=== PATIENT | female | born 1970 | race Caucasian/White ===

== ENCOUNTER 2017-07-04 13:45 | Emergency (ER) | payer MEDICAID ==
[2017-07-04] MEDS ORDERED: Bupivacaine 0.5% 30 ML SDV INFILT ONE (13:46)
[2017-07-04] MEDS ORDERED: Diphtheria,Pertussis(Acell),Tetanus Vaccine 0.5 ML SDV IM ONE (15:04)
[2017-07-04] MEDS ORDERED: cefTRIAXone 1,000 MG VIAL IM ONE (15:21)
--- NOTE | 2017-07-04 16:23 | EDM.PDOC ---
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 Pt noticed a LAC with bleed and pain with movement of her left ringfinger. She was not able to close her fist at her left hand because she was not able to bend her left ringfinger entirely. No active bleed, no other acute medical issues. 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: Pt did not take anything prior to coming into ER for pain Left 4-Ring finger Pain Score (Numeric/FACES): 8 - Related Data Allergies Allergy/AdvReac Type Severity Reaction Status Date / Time augmentin Allergy Hives Uncoded 07/04/17 14:21 bacterim Allergy Liver Uncoded 07/04/17 14:22 Problems bacterin Allergy Liver Uncoded 07/04/17 14:22 Problems Home Meds: Home Meds Cephalexin [Keflex] 500 mg PO Q6H #40 cap 07/04/17 [Rx] Furosemide [Lasix] 20 mg PO DAILY 07/04/17 [History] Sertraline [Zoloft] 100 mg PO DAILY 07/04/17 [History] Topiramate [Topamax] 50 mg PO DAILY 07/04/17 [History] tiZANidine HCl [Zanaflex] 6 mg PO DAILY 07/04/17 [History] ED ROS GENERAL - Review of Systems Review Of Systems: See Below Constitutional: Reports: No Symptoms HEENT: Reports: No Symptoms Respiratory: Reports: No Symptoms Cardiovascular: Reports: No Symptoms Endocrine: Reports: No Symptoms GI/Abdominal: Reports: No Symptoms : Reports: No Symptoms Musculoskeletal: Reports: No Symptoms Skin: Reports: Wound (left 4th finger) Neurological: Reports: No Symptoms Psychiatric: Reports: No Symptoms Hematologic/Lymphatic: Reports: No Symptoms Immunologic: Reports: No Symptoms ED EXAM, SKIN/RASH Exam: See Below Exam Limited By: No Limitations General Appearance: Alert, WD/WN, Mild Distress Eye Exam: Bilateral Eye: Normal Inspection Ears: Normal External Exam Nose: Normal Inspection, Normal Mucosa Throat/Mouth: Normal Inspection, Normal Lips Head: Atraumatic, Normocephalic Neck: Normal Inspection, Supple, Non-Tender, Full Range of Motion Respiratory/Chest: No Respiratory Distress, Lungs Clear, Normal Breath Sounds, No Accessory Muscle Use, Chest Non-Tender Cardiovascular: Normal Peripheral Pulses, Regular Rate, Rhythm, No Edema, No Gallop, No JVD, No Murmur, No Rub Peripheral Pulses: 1+: Radial (L) GI/Abdominal: Normal Bowel Sounds, Soft, Non-Tender, No Organomegaly, No Distention, No Abnormal Bruit (Female) Exam: Deferred Rectal (Female) Exam: Deferred Back Exam: Normal Inspection, Full Range of Motion Extremities: Limited Range of Motion (of left ringfinger due to pain) Neurological: Alert, Oriented, CN II-XII Intact, Normal Cognition, Normal Gait, No Motor/Sensory Deficits Psychiatric: Normal Affect, Normal Mood Skin: Wound/Incision (left ringfinger) Location, Skin: Upper Extremity, Left Lymphatic: No Adenopathy ED SKIN PROCEDURES - Laceration/Wound Repair Left Middle Anterior Finger Lac/Wound length In cm: 2 Appearance: Superficial, Stellate, Clean Distal NVT: Neuro & Vascular Intact, No Tendon Injury (possible) Anesthetic Type: Local Local Anesthesia - Bupivicaine (Marcaine): 0.5% Plain Local Anesthetic Volume: 3cc Skin Prep: Providone-Iodine (Betadine) Saline Irrigation (cc's): 4 Exploration/Debridement/Repair: Wound Explored, In a Bloodless Field, Explored to Base Closed with: Sutures Suture Size: 4-0 # of Sutures: 4 Suture Type: Other (ethilen) Tetanus Status Addressed: Other (07/04/2017) Complications: No Course - Vital Signs Text/Narrative:: 46 y.o.w.f came with her son to the ed after she cut herself by accident into 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 Pt noticed a LAC with bleed and pain with movement of her left ringfinger. She was not able to close her fist at her left hand because she was not able to bend her left ringfinger entirely. No active bleed, no other acute medical issues. BP 105/57 RR 18 Pulse ox 97% Temp 36.7 pulse 78 PE: WNWD W F in NAD with a left ring finger LAC. Procedure: Please see note above Impression: LAC left ring finger, repaired in the ed. Tx: Rocephine, TD Reexam: Improved Plan: D/C with instructions Last Recorded V/S: Last Vital Signs Temp 37.0 C 07/04/17 16:24 Pulse 68 07/04/17 16:24 Resp 16 07/04/17 16:24 BP 94/55 L 07/04/17 16:24 Pulse Ox 99 07/04/17 16:24 - Orders/Labs/Meds Orders: Active Orders 24 hr Category Date Time Status Vaccines to be Administered [RC] PER UNIT ROUTINE Care 07/04/17 15:05 Active Meds: Medications Discontinued Medications Generic Name Dose Route Start Last Admin Trade Name Kimberly PRN Reason Stop Dose Admin Ceftriaxone Sodium 1,000 mg 07/04/17 15:21 07/04/17 15:31 Rocephin IM 07/04/17 15:22 1,000 mg ONETIME ONE Administration Diphtheria/Tetanus/Acell Pertussis 0.5 ml 07/04/17 15:04 07/04/17 15:34 Adacel IM 07/04/17 15:05 0.5 ml .ONCE ONE Administration Departure - Departure Time of Disposition: 16:23 Disposition: Home, Self-Care 01 Condition: Good Clinical Impression: Finger laceration Qualifiers: Encounter type: initial encounter Finger: middle finger Damage to nail status: without damage Foreign body presence: without foreign body Laterality: left Qualified Code(s): S61.213A - Laceration without foreign body of left middle finger without damage to nail, initial encounter - Discharge Information Prescriptions: Cephalexin [Keflex] 500 mg PO Q6H #40 cap Instructions: Stitches, [place], or Adhesive Wound Closure, [id number] Referrals: PCP,None [Primary Care Provider] - Forms: ED Department Discharge, ED Return to Work/School Form Additional Instructions: Please apply Neosporine ointment twice daily for 5 days, Keflex as recommended. Wound check in 2 days, suture removal in 10 days. Please come back to the ed if your symptoms get worse acutely - My Orders Last 24 Hours: My Active Orders 07/04/17 15:05 Vaccines to be Administered [RC] PER UNIT ROUTINE - Assessment/Plan Last 24 Hours: My Active Orders 07/04/17 15:05 Vaccines to be Administered [RC] PER UNIT ROUTINE
== END 2017-07-04 16:40 | disposition home or self-care (01) ==
LOC: FB.ED 13:45
DX: S61.215A Laceration without foreign body of left ring finger without damage to nail, initial encounter (principal); Z23 Encounter for immunization; Z88.1 Allergy status to other antibiotic agents; Z79.899 Other long term (current) drug therapy; W26.8XXA Contact with other sharp object(s), not elsewhere classified, initial encounter
CPT/HCPCS: 12001; 90471; 90715; 96372; 99282; J0696

== ENCOUNTER 2022-04-06 13:32 | Emergency (ER) | payer MEDICAID | END 2022-04-06 14:00 | disposition left against medical advice (07) | LOC: FB.ED 13:32 | DX: Z53.21 Procedure and treatment not carried out due to patient leaving prior to being seen by health care provider (principal) ==

== ENCOUNTER 2023-09-29 01:35 | Emergency (ER) | payer BC, MEDICAID | END 2023-09-29 03:25 | disposition home or self-care (01) | LOC: FB.ED 01:35 | DX: S62.646A Nondisplaced fracture of proximal phalanx of right little finger, initial encounter for closed fracture (principal); Z79.899 Other long term (current) drug therapy; Z88.8 Allergy status to other drugs, medicaments and biological substances; Z88.2 Allergy status to sulfonamides; Z88.1 Allergy status to other antibiotic agents; W23.0XXA Caught, crushed, jammed, or pinched between moving objects, initial encounter | CPT/HCPCS: 29125; 73130-RT; 99283-25 ==